=== PATIENT | female | born 1960 | race Caucasian/White ===

== ENCOUNTER 2018-08-18 08:22 | Emergency (ER) | payer MEDICARE ==
[~2018-08-18] VITALS: Ht 170.2 cm; Wt 70.0 kg
[~2018-08-18 08:22] MED LIST: ARIMIDEX1 MG PO; LISINOPRIL20 MG PO; LOMOTIL2.5 MG PO; METFORMIN500 MG PO; ONDANSETRON4 MG PO; PAXIL30 MG PO
[2018-08-18 10:05] VITALS: BP 138/66
== END 2018-08-18 10:13 | disposition home or self-care (01) ==
LOC: ED 08:22
DX: S46.912A Strain of unspecified muscle, fascia and tendon at shoulder and upper arm level, left arm, initial encounter (principal); E11.9 Type 2 diabetes mellitus without complications; I10 Essential (primary) hypertension; X58.XXXA Exposure to other specified factors, initial encounter

== ENCOUNTER 2019-01-07 13:44 | Observation (INO) | payer MEDICARE ==
[~2019-01-07] VITALS: Ht 170.2 cm; Wt 94.0 kg
[2019-01-07 15:30] LABS: HEMATOCRIT 39.2 % (37.0-47.0); HEMOGLOBIN 12.5 g/dl (12.0-16.0); IMMATURE GRANULOCYTES 0.5 % (0.0-5.0); MEAN CORPUSCULAR HGB 27.1 pG CALC (26.0-32.0); MEAN CORPUSCULAR HGB CONC 31.9 g/L CALC (32.0-36.0); NEUT# 5.53 thou/uL (2.00-7.15); RED BLOOD COUNT 4.61 mill/uL (4.20-5.60); RED CELL DISTRI WIDTH 13.8 % (11.5-15.5)
[2019-01-07 15:45] VITALS: BP 130/43
[2019-01-07 15:51] LABS: AMYLASE 43 u/l (30-110); LIPASE 51 u/l (23-300)
[2019-01-07 19:25] LABS: ALBUMIN 4.4 g/dL (3.2-5.0); ALKALINE PHOSPHATASE 138 u/l (38-126); ANION GAP 14 (6-22 (CALC)); BUN 15 mg/dL (7-17); BUN/CREATININE RATIO 20 (12-20 (CALC)); CARBON DIOXIDE 29 mmol/l (22-30); CHLORIDE 99 mmol/l (95-108); CREATININE 0.8 mg/dL (0.5-1.0); GFR > 60 ML/MIN (>=60 (CALC)); GFR FOR AFR.AMER. > 60 ML/MIN (>=60 (CALC)); POTASSIUM 4.4 mmol/l (3.5-5.1); SGOT/AST 37 u/l (14-36); SODIUM 137 mmol/l (137-146); TOTAL PROTEIN 8.1 g/dL (6.3-8.2)
[2019-01-07 19:43] LABS: BILIRUBIN, TOTAL 0.6 mg/dL (0.0-1.4)
[2019-01-08 03:54] VITALS: BP 125/75
[2019-01-08 06:42] LABS: ALBUMIN 3.8 g/dL (3.2-5.0); ALKALINE PHOSPHATASE 124 u/l (38-126); ANION GAP 13 (6-22 (CALC)); BILIRUBIN, TOTAL 0.7 mg/dL (0.0-1.4); BUN 9 mg/dL (7-17); BUN/CREATININE RATIO 14 (12-20 (CALC)); CARBON DIOXIDE 26 mmol/l (22-30); CHLORIDE 105 mmol/l (95-108); CREATININE 0.6 mg/dL (0.5-1.0); GFR > 60 ML/MIN (>=60 (CALC)); GFR FOR AFR.AMER. > 60 ML/MIN (>=60 (CALC)); POTASSIUM 4.6 mmol/l (3.5-5.1); SGOT/AST 38 u/l (14-36); SODIUM 140 mmol/l (137-146); TOTAL PROTEIN 6.9 g/dL (6.3-8.2)
[2019-01-08] MEDS ORDERED: LANTUS100 UNIT/M SC (09:53)
[2019-01-08 11:03] VITALS: BP 118/64
[2019-01-08] MEDS ORDERED: CYMBALTA30 MG PO (12:02)
[2019-01-08] MEDS ORDERED: DULOXETINE HCL30 MG (12:02)
[2019-01-08] MEDS ORDERED: DULOXETINE HYDR60 MG PO (12:05)
[2019-01-08] MEDS ORDERED: NORVASC5 M1 PO (12:05)
[2019-01-08] MEDS ORDERED: LISINOPRIL40 MG PO (12:22)
[2019-01-08] MEDS ORDERED: OMEPRAZOLE20 MG PO (13:19)
[2019-01-08 16:06] VITALS: BP 134/73
[2019-01-08 19:10] VITALS: BP 129/72
[2019-01-09 00:45] VITALS: BP 139/76
[2019-01-09 03:36] VITALS: BP 147/80
[2019-01-09 08:15] VITALS: BP 138/51
[2019-01-09] MEDS ORDERED: VANCOMYCIN HCL125 M1 PO (10:57)
[2019-01-09 11:18] VITALS: BP 137/57
== END 2019-01-09 13:07 | disposition home or self-care (01) ==
LOC: MS2 13:44
PROVIDERS: ADMIT Internal Medicine; ATTEND Internal Medicine
DX: A04.72 Enterocolitis due to Clostridium difficile, not specified as recurrent (principal); E11.9 Type 2 diabetes mellitus without complications; I10 Essential (primary) hypertension; E78.5 Hyperlipidemia, unspecified; K21.9 Gastro-esophageal reflux disease without esophagitis; C50.919 Malignant neoplasm of unspecified site of unspecified female breast; K52.9 Noninfective gastroenteritis and colitis, unspecified; C79.9 Secondary malignant neoplasm of unspecified site; R59.0 Localized enlarged lymph nodes; F32.9 Major depressive disorder, single episode, unspecified; Z79.811 Long term (current) use of aromatase inhibitors; Z79.4 Long term (current) use of insulin; Z87.891 Personal history of nicotine dependence
CPT/HCPCS: G0378; G0379; J3370; Q3014

== ENCOUNTER 2019-11-23 20:26 | Emergency (ER) | payer MEDICARE ==
[~2019-11-23] VITALS: Ht 170.2 cm; Wt 90.0 kg
[~2019-11-23 20:26] MED LIST changes: +CYMBALTA30 MG PO; +DULOXETINE HCL30 MG; +DULOXETINE HYDR60 MG PO; +LANTUS100 UNIT/M SC; +LISINOPRIL40 MG PO; +NORVASC5 M1 PO; +OMEPRAZOLE20 MG PO; +VANCOMYCIN HCL125 M1 PO
[2019-11-23] MEDS ORDERED: OXYCOD-APAP1 TA1 PO (20:55)
[2019-11-23] MEDS ORDERED: NEURONTIN100 MG PO (20:55)
[2019-11-23] MEDS ORDERED: FENTANYL50 MCG/HR TD (20:56)
[2019-11-23] MEDS ORDERED: PLAVIX75 MG PO (21:13)
[2019-11-23 21:30] LABS: HEMATOCRIT 40.8 % (37.0-47.0); IMMATURE GRANULOCYTES 0.5 % (0.0-5.0); MEAN CELL VOLUME 82.1 fL CALC (80.0-100.0); MEAN CORPUSCULAR HGB 26.2 pG CALC (26.0-32.0); MEAN CORPUSCULAR HGB CONC 31.9 g/dL CAL (32.0-36.0); NEUT# 9.27 thou/uL (2.00-7.15); RED BLOOD COUNT 4.97 mill/uL (4.20-5.60); RED CELL DISTRI WIDTH 12.9 % (11.5-15.5)
[2019-11-23 21:37] LABS: ALBUMIN 4.5 g/dL (3.2-5.0); ALKALINE PHOSPHATASE 176 u/l (38-126); ANION GAP 15 (6-22 (CALC)); BUN 15 mg/dL (8-23); BUN/CREATININE RATIO 25 (12-20 (CALC)); CARBON DIOXIDE 28 mmol/l (22-30); CHLORIDE 95 mmol/l (95-108); CREATININE 0.6 mg/dL (0.5-1.0); GFR > 60 ML/MIN (>=60 (CALC)); GFR FOR AFR.AMER. > 60 ML/MIN (>=60 (CALC)); POTASSIUM 4.6 mmol/l (3.5-5.1); SGOT/AST 33 u/l (9-36); SODIUM 133 mmol/l (137-146)
[2019-11-23 21:48] LABS: MYOGLOBIN 18 ng/mL (0 - 62)
[2019-11-23 21:50] LABS: BILIRUBIN, TOTAL 0.4 mg/dL (0.0-1.4); TOTAL PROTEIN 8.6 g/dL (6.3-8.2)
[2019-11-23 23:20] VITALS: BP 158/75
== END 2019-11-23 23:20 | disposition home or self-care (01) ==
LOC: ED 20:26
PROVIDERS: Family Medicine
DX: G89.3 Neoplasm related pain (acute) (chronic) (principal); C50.919 Malignant neoplasm of unspecified site of unspecified female breast; C79.9 Secondary malignant neoplasm of unspecified site; E11.9 Type 2 diabetes mellitus without complications; I10 Essential (primary) hypertension; Z95.828 Presence of other vascular implants and grafts

== ENCOUNTER 2020-03-05 11:14 | Emergency (ER) | payer MEDICARE ==
[~2020-03-05] VITALS: Ht 170.2 cm; Wt 79.5 kg
[~2020-03-05 11:14] MED LIST changes: +FENTANYL50 MCG/HR TD; +NEURONTIN100 MG PO; +OXYCOD-APAP1 TA1 PO; +PLAVIX75 MG PO
[2020-03-05] MEDS ORDERED: CLOPIDOGREL75 MG PO (12:25)
[2020-03-05] MEDS ORDERED: DULOXETINE HCL60 MG PO (12:26)
[2020-03-05] MEDS ORDERED: AMLODIPINE BESYL5 MG PO (12:26)
[2020-03-05] MEDS ORDERED: LANTUS SOL100 UNIT/M SC (12:27)
[2020-03-05] MEDS ORDERED: FENTANYL75 MCG/HR TD (12:28)
[2020-03-05] MEDS ORDERED: OXYCOD-APAP1 TA1 PO (12:28)
[2020-03-05] MEDS ORDERED: ONDANSETRON4 MG PO (12:29)
[2020-03-05] MEDS ORDERED: SPIRIVA RE1.25 MCG/A IN (12:32)
[2020-03-05] MEDS ORDERED: COLESTIPOL1 GM PO (12:33)
[2020-03-05] MEDS ORDERED: HYDROCHLOROT25 MG PO (12:34)
[2020-03-05] MEDS ORDERED: LISINOPRIL20 MG PO (12:34)
[2020-03-05 13:07] LABS: HEMATOCRIT 44.5 % (37.0-47.0); HEMOGLOBIN 13.9 g/dl (12.0-16.0); IMMATURE GRANULOCYTES 0.6 % (0.0-5.0); MEAN CELL VOLUME 80.6 fL CALC (80.0-100.0); MEAN CORPUSCULAR HGB 25.2 pG CALC (26.0-32.0); MEAN CORPUSCULAR HGB CONC 31.2 g/dL CAL (32.0-36.0); NEUT# 7.92 thou/uL (2.00-7.15); RED BLOOD COUNT 5.52 mill/uL (4.20-5.60)
[2020-03-05 13:26] LABS: ALBUMIN 4.4 g/dL (3.2-5.0); ALKALINE PHOSPHATASE 164 u/l (38-126); ANION GAP 15 (6-22 (CALC)); BUN 15 mg/dL (8-23); BUN/CREATININE RATIO 20 (12-20 (CALC)); CARBON DIOXIDE 28 mmol/l (22-30); CHLORIDE 97 mmol/l (95-108); CREATININE 0.8 mg/dL (0.5-1.0); GFR > 60 ML/MIN (>=60 (CALC)); GFR FOR AFR.AMER. > 60 ML/MIN (>=60 (CALC)); LIPASE 36 u/l (23-300); POTASSIUM 4.1 mmol/l (3.5-5.1); SGOT/AST 29 u/l (9-36); SODIUM 136 mmol/l (137-146); TOTAL PROTEIN 8.7 g/dL (6.3-8.2)
[2020-03-05 13:58] LABS: BILIRUBIN, TOTAL 0.6 mg/dL (0.0-1.4)
[2020-03-05 14:36] LABS: URINE BLOOD DIPSTICK LARGE (NEGATIVE); URINE GLUCOSE - DIPSTICK NEGATIVE (NEGATIVE); URINE KETONE TRACE mg/dL (NEGATIVE); URINE NITRITE - DIPSTICK NEGATIVE (Negative); URINE PH 6.5 (4.5-8.0); URINE PROTEIN - DIPSTICK 100 mg/dL (NEG-TRACE); URINE SPECIFIC GRAVITY 1.015; URINE UROBILINOGEN - DIPSTICK 0.2 E.U./dL (0.2)
[2020-03-05 14:37] LABS: URINE BILIRUBIN - DIPSTICK MODERATE (NEGATIVE); URINE COLOR DK. YELLOW; URINE LEUK ESTERASE SMALL (NEGATIVE)
[2020-03-05 14:38] LABS: URINE BACTERIA FEW hpf; URINE EPITHELIAL CELLS MODERATE EPI/hpf (0-FEW); URINE RBC 25-50 RBC/hpf (0-5)
[2020-03-05] MEDS ORDERED: PEPCID40 MG PO (16:47)
[2020-03-05] MEDS ORDERED: DICYCLOMINE20 MG PO (16:47)
[2020-03-05] MEDS ORDERED: REGLAN10 MG PO (16:47)
[2020-03-05 16:50] VITALS: BP 157/76
== END 2020-03-05 16:54 | disposition home or self-care (01) ==
LOC: ED 11:14
PROVIDERS: Student in an Organized Health Care Education/Training Program
DX: K52.9 Noninfective gastroenteritis and colitis, unspecified (principal); C50.919 Malignant neoplasm of unspecified site of unspecified female breast; C78.00 Secondary malignant neoplasm of unspecified lung; F11.20 Opioid dependence, uncomplicated; E11.9 Type 2 diabetes mellitus without complications; I10 Essential (primary) hypertension; R82.71 Bacteriuria; Z79.4 Long term (current) use of insulin; Z20.822 Contact with and (suspected) exposure to COVID-19
CPT/HCPCS: Q9967